=== PATIENT | male | born 1945 | race Caucasian/White ===

== ENCOUNTER 2021-08-24 18:45 | Inpatient (IN) | payer MEDICARE ==
[~2021-08-24] VITALS: Ht 162.6 cm; Wt 68.2 kg
[~2021-08-24 18:45] MED LIST: AMLO5TAB4 MT; ATOR20TA65 MT; CHOL100022 PO; FERR325T6 PO; FOLI-43 PO; HYDR-4135 MT; METF-416 PO; NETA2.5D EACHEYE; PROT40 MT; TAMS-11 MT
[2021-08-24 23:10] LABS: CLARITY URINE CLEAR (CLEAR); COLOR URINE YELLOW (YELLOW); KETONES URINE NEGATIVE (NEGATIVE); LEUKOCYTE ESTERASE URINE NEGATIVE (NEGATIVE); NITRITE URINE NEGATIVE (NEGATIVE); OCCULT BLOOD URINE NEGATIVE (NEGATIVE); PROTEIN URINE 3+ (NEGATIVE); SPECIFIC GRAVITY URINE 1.017 (1.005-1.030); UROBILINOGEN URINE 0.2 E.U./dL (0.2-1.0)
[2021-08-24 23:13] LABS: BASOPHILS % 0.6 % (0.0-2.0); EOSINOPHILS % 3.2 % (0.0-5.0); HEMATOCRIT. 24.5 % (42.0-52.0); MONOCYTES % 10.2 % (2.0-8.0); PLATELET 308 x1000/uL (130-400); RED BLOOD CELL COUNT 2.96 mill/uL (4.7-6.1); RED CELL DISTRIBUTION WIDTH 15.6 % (11.6-14.6)
[2021-08-24 23:20] LABS: CHLORIDE 111 mEq/L (98-107)
[2021-08-24 23:24] LABS: INR 0.9; PARTIAL THROMBOPLASTIN TIME 27.1 sec (23.4-31.0); PROTHROMBIN TIME 10.1 sec (9.6-11.0)
[2021-08-25] MEDS ORDERED: IOHEXOL-300 100 ML BOTTLE ONE (01:12)
[2021-08-25] MEDS ORDERED: PANTOPRAZOLE SODIUM 40 MG/VIAL IV ONE (01:30)
[2021-08-25 09:40] VITALS: BP 174/65
[2021-08-25 10:00] VITALS: BP 174/65
[2021-08-25 12:00] VITALS: BP 165/54
[2021-08-25] MEDS ORDERED: IPRATROPIUM/ALBUTEROL 0.5-3(2.5)MG/3ML NEB HHN PRN (12:00)
[2021-08-25] MEDS ORDERED: ACETAMINOPHEN 325MG TABLET PO PRN (12:00)
[2021-08-25] MEDS ORDERED: ONDANSETRON HCL 4MG/2ML INJ IV PRN (12:00)
[2021-08-25] MEDS ORDERED: DIPHENHYDRAMINE 50MG/ML VIAL IV PRN (12:00)
[2021-08-25] MEDS ORDERED: NALOXONE HCL 0.4MG/ML VIAL IV PRN (12:00)
[2021-08-25] MEDS ORDERED: ACETAMINOPHEN 650MG SUPP PR PRN (12:00)
[2021-08-25] MEDS ORDERED: MORPHINE SULFATE 2 MG/ML CPJ (NOT FOR IM USE) IV PRN (12:00)
[2021-08-25] MEDS ORDERED: BISACODYL 10MG SUPP PR PRN (12:00)
[2021-08-25] MEDS: PANTOPRAZOLE SODIUM 40 MG/VIAL IV SCH ×2 (12:40→21:15)
[2021-08-25 13:01] LABS: BASOPHILS % 0.8 % (0.0-2.0); EOSINOPHILS % 2.8 % (0.0-5.0); HEMATOCRIT. 24.7 % (42.0-52.0); HEMOGLOBIN. 7.9 g/dL (14.0-18.0); LYMPHOCYTES % 13.2 % (20.0-50.0); MEAN CORPUSCULAR HEMOGLOBIN 26.5 pg (28.0-32.0); MEAN CORPUSCULAR VOLUME 82.5 fL (80.0-94.0); MEAN PLATELET VOLUME 7.2 fl (7.4-10.4); NEUTROPHILS % 72.2 % (40.0-76.0); PLATELET 321 x1000/uL (130-400); RED CELL DISTRIBUTION WIDTH 15.7 % (11.6-14.6)
[2021-08-25 13:15] LABS: CHLORIDE 109 mEq/L (98-107); PROTHROMBIN TIME 10.4 sec (9.6-11.0)
[2021-08-25 13:20] LABS: TOTAL IRON BINDING CAPACITY 322 ug/dL (250-450)
[2021-08-25 13:30] LABS: FERRITIN 12 ng/mL (22-322)
[2021-08-25] MEDS ORDERED: MIDAZOLAM HCL 5 MG/5 ML VIAL IV PRN (13:54)
[2021-08-25] MEDS ORDERED: FENTANYL CITRATE/PF 50MCG/ML 2ML VIAL ONE (13:54)
[2021-08-25] MEDS ORDERED: MIDAZOLAM HCL 5 MG/5 ML VIAL ONE (13:54)
[2021-08-25] MEDS ORDERED: FENTANYL CITRATE/PF 50MCG/ML 2ML VIAL IV PRN (13:54)
[2021-08-25 14:40] LABS: VITAMIN B12 SERUM 672 pg/mL (211-911)
[2021-08-25 14:44] LABS: FOLIC ACID (FOLATE) SERUM > 20.00 ng/mL (>5.38)
[2021-08-25 16:00] VITALS: BP 160/65
[2021-08-25] MEDS: DEXT 5%/0.45% NACL 1000ML 1,000 ML IV SCH (17:18)
[2021-08-25 19:25] LABS: HEMATOCRIT 25.3 % (42.0-52.0); HEMOGLOBIN 8.4 g/dL (14.0-18.0)
[2021-08-25 20:00] VITALS: BP 148/54
[2021-08-25 23:56] VITALS: BP 148/43
[2021-08-26 01:09] LABS: HEMOGLOBIN 7.9 g/dL (14.0-18.0)
[2021-08-26] MEDS: DEXT 5%/0.45% NACL 1000ML 1,000 ML IV SCH ×2 (01:37→09:02)
[2021-08-26 03:50] VITALS: BP 160/51
[2021-08-26 06:43] LABS: BASOPHILS % 0.7 % (0.0-2.0); EOSINOPHILS % 5.3 % (0.0-5.0); HEMATOCRIT. 25.8 % (42.0-52.0); HEMOGLOBIN. 8.4 g/dL (14.0-18.0); LYMPHOCYTES % 14.9 % (20.0-50.0); MEAN CORPUSCULAR HEMOGLOBIN 26.5 pg (28.0-32.0); MEAN CORPUSCULAR VOLUME 81.2 fL (80.0-94.0); MEAN PLATELET VOLUME 7.8 fl (7.4-10.4); MONOCYTES % 9.7 % (2.0-8.0); NEUTROPHILS % 69.4 % (40.0-76.0); PLATELET 347 x1000/uL (130-400); RED BLOOD CELL COUNT 3.17 mill/uL (4.7-6.1); RED CELL DISTRIBUTION WIDTH 15.6 % (11.6-14.6)
[2021-08-26 08:00] VITALS: BP 161/58
[2021-08-26] MEDS: PANTOPRAZOLE SODIUM 40 MG/VIAL IV SCH (09:02)
[2021-08-26 12:00] VITALS: BP 177/66
[2021-08-26] MEDS ORDERED: CLONIDINE 0.1MG TABLET PO NR (13:00)
[2021-08-26 14:27] VITALS: BP 137/70
[2021-08-26 14:31] VITALS: BP 137/59
== END 2021-08-26 15:41 | disposition home or self-care (01) | DRG 379 ==
LOC: ER 18:45 → 6WST 08-25 01:31 → ENRESERV 08-25 07:44 → CANRESERV 08-25 07:44 → ENRESERV 08-25 07:49
PROVIDERS: ADMIT Internal Medicine; ATTEND Internal Medicine
PROC: 0DJ68ZZ Inspection of Stomach, Via Natural or Artificial Opening Endoscopic (ICD-10-PCS; principal; 2021-08-25)
DX: K29.71 Gastritis, unspecified, with bleeding (principal); D50.0 Iron deficiency anemia secondary to blood loss (chronic); N18.9 Chronic kidney disease, unspecified; E11.22 Type 2 diabetes mellitus with diabetic chronic kidney disease; I12.9 Hypertensive chronic kidney disease with stage 1 through stage 4 chronic kidney disease, or unspecified chronic kidney disease; K21.9 Gastro-esophageal reflux disease without esophagitis; I25.10 Atherosclerotic heart disease of native coronary artery without angina pectoris; K44.9 Diaphragmatic hernia without obstruction or gangrene; Z20.822 Contact with and (suspected) exposure to COVID-19; N40.0 Benign prostatic hyperplasia without lower urinary tract symptoms; K57.30 Diverticulosis of large intestine without perforation or abscess without bleeding; K80.20 Calculus of gallbladder without cholecystitis without obstruction; E11.51 Type 2 diabetes mellitus with diabetic peripheral angiopathy without gangrene; F10.10 Alcohol abuse, uncomplicated; Y90.9 Presence of alcohol in blood, level not specified; E11.65 Type 2 diabetes mellitus with hyperglycemia; Z87.11 Personal history of peptic ulcer disease; Z88.0 Allergy status to penicillin; Z88.8 Allergy status to other drugs, medicaments and biological substances; Z79.899 Other long term (current) drug therapy; Z79.84 Long term (current) use of oral hypoglycemic drugs; Z87.891 Personal history of nicotine dependence; Q27.33 Arteriovenous malformation of digestive system vessel
CPT/HCPCS: 36415; 74177; 80048; 80076; 81003; 82607; 82728; 82746; 82962; 83540; 83550; 85014; 85018; 85025; 85044; 86850; 86900; 87426; 93005; 97162; 99285; C9113; J2250; J3010; Q9967